=== PATIENT | male | born 1955 | race Caucasian/White ===

== ENCOUNTER → 2020-05-31 | Outpatient (CLI) | payer MEDICARE ==
[~2020-05-31] MED LIST: AMLO-150 PO; ASPI-515 PO; HYDR25TA6 PO; LANS15CA PO; LOSA50TA14 PO
[2020-05-31 16:45] LABS: ALANINE AMINOTRANSFERASE 41 U/L (12-78); ALBUMIN 4.1 g/dL (3.4-5.0); ANION GAP 4 mmol/L (5-15); CALCIUM 8.9 mg/dL (8.5-10.1); CHLORIDE 108 mmol/L (98-107)
[2020-05-31 16:48] LABS: ALKALINE PHOSPHATASE 73 U/L (45-117); BILIRUBIN,TOTAL 0.6 mg/dL (0.2-1.0); CREATININE 1.15 mg/dL (0.7-1.3); TOTAL PROTEIN 7.1 g/dL (6.4-8.2)
== END | disposition home or self-care (01) ==
LOC: STAR 15:16
PROVIDERS: ATTEND Internal Medicine
DX: Z01.812 Encounter for preprocedural laboratory examination (principal); Z20.828 Contact with and (suspected) exposure to other viral communicable diseases; Z86.010 Personal history of colon polyps
CPT/HCPCS: 80053; 87635; 93005

== ENCOUNTER 2020-06-06 05:51 | Day surgery (SDC) | payer MEDICARE ==
[~2020-06-06] VITALS: Ht 185.4 cm; Wt 105.0 kg
[2020-06-06 06:11] VITALS: BP 144/80
[2020-06-06] MEDS ORDERED: CHLORHEXIDINE 15 ML UDC ONE (06:20)
[2020-06-06] MEDS ORDERED: CHLORHEXIDINE 15 ML UDC MM ONE (06:30)
[2020-06-06] MEDS ORDERED: LACTATED RINGERS 1,000 ML IV SCH (06:30)
[2020-06-06] MEDS ORDERED: FENTANYL PF 100 MCG/2ML ONE (06:54)
[2020-06-06] MEDS ORDERED: METOPROLOL 1 MG/ML, 5ML IV PRN (07:30)
[2020-06-06] MEDS ORDERED: FENTANYL PF 100 MCG/2ML IV PRN (07:30)
[2020-06-06] MEDS ORDERED: EPHEDRINE 50 MG/ML, 1ML IVPush PRN (07:30)
[2020-06-06] MEDS ORDERED: METOCLOPRAMIDE 5 MG/ML, 2ML IVPush PRN (07:30)
[2020-06-06] MEDS ORDERED: HALOPERIDOL 5 MG/ML IV PRN (07:30)
[2020-06-06] MEDS ORDERED: KETOROLAC 30 MG/1 ML IVPush PRN (07:30)
[2020-06-06] MEDS ORDERED: DIAZEPAM 5 MG/ML, 2ML IVPush PRN (07:30)
[2020-06-06] MEDS ORDERED: LABETALOL 5MG/ML, 20ML IV PRN (07:30)
[2020-06-06] MEDS ORDERED: PROMETHAZINE 12.5 MG SUPP PR PRN (07:30)
[2020-06-06] MEDS ORDERED: OXYcodone 5 MG/5 ML ORAL.SOL UDC PO PRN (07:30)
[2020-06-06] MEDS ORDERED: HYDROmorphone 1 MG/ML, 1ML INJ IVPush PRN (07:30)
[2020-06-06] MEDS ORDERED: ACETAMINOPHEN 325 MG TABLET PO PRN (07:30)
[2020-06-06] MEDS ORDERED: hydrALAzine 20 MG/ML, 1ML IV PRN (07:30)
[2020-06-06] MEDS ORDERED: ONDANSETRON 2MG/ML, 2ML IVPush PRN (07:30)
[2020-06-06] MEDS ORDERED: ONDANSETRON 2MG/ML, 2ML ONE (07:43)
[2020-06-06] MEDS ORDERED: PROPOFOL 10 MG/ML, 50ML ONE (07:43)
[2020-06-06] MEDS ORDERED: PHENYLEPHRINE 10 MG/ML ONE (07:43)
== END 2020-06-06 09:50 | disposition home or self-care (01) ==
LOC: OUT 05:51
PROVIDERS: ATTEND Internal Medicine
DX: Z12.11 Encounter for screening for malignant neoplasm of colon (principal); D12.3 Benign neoplasm of transverse colon; D12.5 Benign neoplasm of sigmoid colon; D12.4 Benign neoplasm of descending colon; K57.30 Diverticulosis of large intestine without perforation or abscess without bleeding; E11.9 Type 2 diabetes mellitus without complications; I10 Essential (primary) hypertension; Z86.010 Personal history of colon polyps; Z79.899 Other long term (current) drug therapy; Z72.89 Other problems related to lifestyle; Z82.49 Family history of ischemic heart disease and other diseases of the circulatory system; Z98.890 Other specified postprocedural states
CPT/HCPCS: 45381; 45385; 88305; J2370; J2405; J2704; J3010; J7120